=== PATIENT | male | born 1995 | race Two or more races ===

== ENCOUNTER 2022-10-08 16:56 | Emergency (ER) | payer MEDICAID, OTHER ==
[~2022-10-08] VITALS: Ht 167.6 cm; Wt 64.0 kg
[2022-10-08 17:05] VITALS: BP 124/64; TEMP 98.4
[2022-10-08 20:10] VITALS: O2SAT 98
== END 2022-10-08 20:10 | disposition home or self-care (01) ==
LOC: ER 16:56
DX: Z20.2 Contact with and (suspected) exposure to infections with a predominantly sexual mode of transmission (principal); Z60.2 Problems related to living alone